=== PATIENT | female | born 2000 | race Caucasian/White ===

== ENCOUNTER 2023-04-06 08:00 | Inpatient (IN) | payer OTHER, MEDICAID ==
[~2023-04-06] VITALS: Ht 152.4 cm; Wt 59.0 kg
[2023-04-06] MEDS: LACTATED RINGERS 1,000 ML IV SCH ×2 (08:30→20:30)
[2023-04-06] MEDS ORDERED: LIDOCAINE HCL 1% 20ML VIAL (Pyxis) INJ INFIL SCH (08:45)
[2023-04-06] MEDS ORDERED: MISOPROSTOL 200MCG TABLET VG SCH (09:00)
[2023-04-06] MEDS ORDERED: FENTANYL CITRATE/PF 50MCG/ML 2ML VIAL ONE (09:43)
[2023-04-06] MEDS ORDERED: FENTANYL CITRATE/PF 50MCG/ML 5ML VIAL ONE (09:43)
[2023-04-06] MEDS ORDERED: MORPHINE SULFATE/PF 1MG/ML 10ML AMP ONE (09:44)
[2023-04-06 09:46] LABS: CLARITY URINE TURBID (CLEAR); COLOR URINE YELLOW (YELLOW); GLUCOSE URINE NEGATIVE (NEGATIVE); KETONES URINE 3+ (NEGATIVE); LEUKOCYTE ESTERASE URINE 1+ (NEGATIVE); NITRITE URINE NEGATIVE (NEGATIVE); OCCULT BLOOD URINE 1+ (NEGATIVE); PROTEIN URINE TRACE (NEGATIVE); SPECIFIC GRAVITY URINE 1.017 (1.005-1.030)
[2023-04-06 09:48] LABS: CHLORIDE 107 mEq/L (98-107); INDEX HEMOLYSI 1 (1-3); INDEX ICTERIC 1 (1-4); INDEX LIPEMIC 1 (1-3); POTASSIUM 2.9 mEq/L (3.5-5.1); SODIUM 133 mEq/L (136-145)
[2023-04-06 09:56] LABS: ALANINE AMINOTRANSFERASE 15 IU/L (13-61); ALBUMIN 2.5 g/dL (3.4-5.0); ASPARTATE AMINOTRANSFERASE 17 IU/L (15-37); BILIRUBIN TOTAL 0.5 mg/dL (0.1-1.0); CALCIUM 7.8 mg/dL (8.5-10.1); CARBON DIOXIDE 21 mEq/L (21-32); CREATININE 0.5 mg/dL (0.6-1.3); GLUCOSE 121 mg/dL (70-105); PROTEIN TOTAL 6.2 g/dL (6.0-8.3); UREA NITROGEN BLOOD 3 mg/dL (7-21)
[2023-04-06] MEDS ORDERED: EPHEDRINE SULFATE 50MG/ML VIAL ONE (09:57)
[2023-04-06] MEDS ORDERED: CEFAZOLIN SODIUM 1000MG/VIAL ONE (09:57)
[2023-04-06 09:59] LABS: AMORPHOUS SEDIMENT URINE 4+ /lpf; BACTERIA URINE 2+; SQUAMOUS EPITHELIAL CELL URINE 1+ /lpf (RARE/1+); YEAST URINE NONE SEEN
[2023-04-06] MEDS ORDERED: PENICILLIN G POTASSIUM 5 MMU in DEXT 5% WATER 100 ML IV SCH (10:00)
[2023-04-06 10:15] LABS: INR 0.9; PARTIAL THROMBOPLASTIN TIME 29.3 sec (23.4-31.0); PROTHROMBIN TIME 10.1 sec (9.6-11.0)
[2023-04-06 10:32] LABS: RAPID HIV SCREEN NEGATIVE (NEGATIVE)
[2023-04-06 10:37] LABS: *AMPHETAMINES SCREEN URINE NEGATIVE (NEGATIVE); *BARBITURATES SCREEN URINE NEGATIVE (NEGATIVE); *BENZODIAZEPINES SCREEN URINE NEGATIVE (NEGATIVE); *COCAINE SCREEN URINE NEGATIVE (NEGATIVE); CANNABINOID URINE SCREEN NEGATIVE (NEGATIVE); ECSTASY MDMA SCREEN URINE NEGATIVE (NEGATIVE); METHADONE URINE SCREEN NEGATIVE (NEGATIVE); OPIATES URINE SCREEN NEGATIVE (NEGATIVE); PHENCYCLIDINE URINE SCREEN NEGATIVE (NEGATIVE)
[2023-04-06] MEDS ORDERED: LABETALOL 5MG/ML SYR 20 MG/4 ML SYRINGE IV PRN (10:45)
[2023-04-06] MEDS ORDERED: MEPERIDINE HCL/PF 25MG/ML CPJ IV PRN (10:45)
[2023-04-06] MEDS ORDERED: HYDROMORPHONE HCL/PF 2MG/ML CPJ IV PRN ×2 (10:45)
[2023-04-06] MEDS ORDERED: DIPHENHYDRAMINE 50MG/ML VIAL IV PRN (10:45)
[2023-04-06] MEDS ORDERED: ONDANSETRON HCL 4MG/2ML INJ IV PRN ×3 (10:45→12:00)
[2023-04-06] MEDS: OXYTOCIN 30 UNITS/500ML NS PMX 500 ML IV SCH ×2 (11:48→16:34)
[2023-04-06] MEDS ORDERED: LANOLIN OINT 7GM TUBE TOP PRN (12:00)
[2023-04-06] MEDS ORDERED: IBUPROFEN 400MG TABLET PO PRN (12:00)
[2023-04-06] MEDS ORDERED: ACETAMINOPHEN WITH CODEINE 300/30MG TABLET PO PRN (12:00)
[2023-04-06] MEDS ORDERED: BISACODYL 10MG SUPP PR PRN (12:00)
[2023-04-06] MEDS ORDERED: RHO(D) IMMUNE GLOBULIN 300 MCG/SYR IM PRN (12:00)
[2023-04-06] MEDS ORDERED: HEMORRHOIDAL SUPP PR PRN (12:00)
[2023-04-06] MEDS ORDERED: OXYTOCIN 30 UNITS/500ML NS PMX 500 ML IV SCH (12:00)
[2023-04-06] MEDS ORDERED: DIPHENHYDRAMINE 25MG CAPSULE PO PRN (12:00)
[2023-04-06 12:55] LABS: BASOPHILS % 0.2 % (0.0-2.0); EOSINOPHILS % 0.6 % (0.0-5.0); HEMATOCRIT. 35.6 % (36.0-48.0); HEMOGLOBIN. 12.2 g/dL (12.0-16.0); LYMPHOCYTES % 15.1 % (20.0-50.0); MEAN CORPUSCULAR HEMOGLOBIN 30.8 pg (28.0-32.0); MEAN CORPUSCULAR HGB CONC 34.4 g/dL (31.0-37.0); MEAN CORPUSCULAR VOLUME 89.5 fL (81.0-99.0); MEAN PLATELET VOLUME 10.2 fl (7.4-10.4); MONOCYTES % 3.6 % (2.0-8.0); NEUTROPHILS % 80.5 % (40.0-76.0); PLATELET 133 x1000/uL (130-400); RED BLOOD CELL COUNT 3.97 mill/uL (4.2-5.4); RED CELL DISTRIBUTION WIDTH 13.1 % (11.6-14.6); WHITE BLOOD COUNT 11.5 x1000/uL (4.5-11.0)
[2023-04-06 13:25] LABS: HEPATITIS B SURFACE ANTIGEN NEGATIVE
[2023-04-06 15:45] VITALS: O2SAT 98
[2023-04-06 16:00] VITALS: BP 99/58; PULSE 94; RESP 18; TEMP 98.8; O2SAT 98
[2023-04-06 17:00] VITALS: BP 99/59; PULSE 92; RESP 18; TEMP 98.5
[2023-04-06 18:00] VITALS: BP 99/58; PULSE 90; RESP 18; TEMP 98.5
[2023-04-06 20:00] VITALS: BP 96/58; PULSE 93; RESP 18; TEMP 99; O2SAT 97
[2023-04-06] MEDS: DOCUSATE SODIUM 100MG CAPSULE PO SCH (20:23)
[2023-04-06] MEDS: MAGNESIUM/ALUMINUM HYDROXIDE/SIMETHICONE 30ML UDC PO SCH (20:24)
[2023-04-06] MEDS: SIMETHICONE 80MG TABLET CHEW PO SCH (20:24)
[2023-04-06] MEDS: KETOROLAC 30MG/ML VIAL IV PRN (21:50)
[2023-04-07] VITALS: BP 94/56; PULSE 90; RESP 18; TEMP 98.6
[2023-04-07] MEDS: KETOROLAC 30MG/ML VIAL IV PRN (03:55)
[2023-04-07 04:00] VITALS: BP 98/55; PULSE 81; RESP 18; TEMP 98.5
[2023-04-07 06:38] LABS: BASOPHILS % 0.1 % (0.0-2.0); EOSINOPHILS % 0.3 % (0.0-5.0); HEMATOCRIT. 30.8 % (36.0-48.0); HEMOGLOBIN. 10.7 g/dL (12.0-16.0); LYMPHOCYTES % 13.2 % (20.0-50.0); MEAN CORPUSCULAR HEMOGLOBIN 31.3 pg (28.0-32.0); MEAN CORPUSCULAR HGB CONC 34.8 g/dL (31.0-37.0); MEAN CORPUSCULAR VOLUME 89.8 fL (81.0-99.0); MEAN PLATELET VOLUME 9.9 fl (7.4-10.4); MONOCYTES % 5.2 % (2.0-8.0); NEUTROPHILS % 81.2 % (40.0-76.0); PLATELET 135 x1000/uL (130-400); RED BLOOD CELL COUNT 3.43 mill/uL (4.2-5.4); RED CELL DISTRIBUTION WIDTH 13.3 % (11.6-14.6); WHITE BLOOD COUNT 13.9 x1000/uL (4.5-11.0)
[2023-04-07] MEDS: MAGNESIUM/ALUMINUM HYDROXIDE/SIMETHICONE 30ML UDC PO SCH ×4 (07:30→19:43)
[2023-04-07] MEDS: FERROUS SULFATE 325MG TABLET PO SCH ×3 (07:30→17:09)
[2023-04-07 08:00] VITALS: BP 95/56; PULSE 76; RESP 18; TEMP 98.9; O2SAT 97
[2023-04-07] MEDS: SIMETHICONE 80MG TABLET CHEW PO SCH ×4 (08:00→19:46)
[2023-04-07] MEDS: PRENATAL VIT/FE FUMARATE/FA TABLET PO SCH (09:00)
[2023-04-07 12:00] VITALS: BP 91/54; PULSE 73; RESP 18; TEMP 98.5
[2023-04-07 16:00] VITALS: BP 90/54; PULSE 77; RESP 18; TEMP 98.5
[2023-04-07 19:30] VITALS: BP 92/55; PULSE 87; RESP 20; TEMP 99.2; O2SAT 98
[2023-04-07] MEDS: IBUPROFEN 800MG TABLET PO PRN (19:45)
[2023-04-07] MEDS: DOCUSATE SODIUM 100MG CAPSULE PO SCH (19:47)
[2023-04-07] MEDS ORDERED: GUAIFENESIN-DM 200MG-20MG/10ML UDC PO PRN (23:00)
[2023-04-07] MEDS ORDERED: GUAIFENESIN 200MG/10ML SUGAR FREE UDC PO PRN (23:15)
[2023-04-08] MEDS: IBUPROFEN 800MG TABLET PO PRN ×2 (03:59→13:47)
[2023-04-08 04:00] VITALS: BP 95/54; PULSE 57; RESP 18; TEMP 98.6
[2023-04-08] MEDS: MAGNESIUM/ALUMINUM HYDROXIDE/SIMETHICONE 30ML UDC PO SCH ×2 (09:23→13:46)
[2023-04-08] MEDS: SIMETHICONE 80MG TABLET CHEW PO SCH ×2 (09:23→13:47)
[2023-04-08] MEDS: FERROUS SULFATE 325MG TABLET PO SCH ×2 (09:23→13:47)
[2023-04-08] MEDS: PRENATAL VIT/FE FUMARATE/FA TABLET PO SCH (09:23)
[2023-04-08 09:33] VITALS: O2SAT 97
== END 2023-04-08 16:55 | disposition home or self-care (01) | DRG 786 ==
LOC: OBSVTOIN 08:00 → 8 EST LDRP 08:00 → 8EST 15:30
PROVIDERS: ADMIT Obstetrics & Gynecology; ATTEND Obstetrics & Gynecology
PROC: 10D00Z1 Extraction of Products of Conception, Low, Open Approach (ICD-10-PCS; principal; 2023-04-06)
DX: O32.1XX0 Maternal care for breech presentation, not applicable or unspecified (principal); O60.14X0 Preterm labor third trimester with preterm delivery third trimester, not applicable or unspecified; Z37.0 Single live birth; Z3A.30 30 weeks gestation of pregnancy; Z88.6 Allergy status to analgesic agent
CPT/HCPCS: 36415; 71045; 74018; 76805; 80053; 80305; 81003; 85025; 86592; 86644; 86703; 86762; 86850; 86900; 86920; 87077; 87340; 88307; 99281; G0378; J0690; J1885; J2274; J2405; J2540; J3010; J3490; J7060; J7120; J2590